=== PATIENT | female | born 1985 | race Caucasian/White ===

== ENCOUNTER 2021-08-02 12:13 | Emergency (ER) | payer OTHER ==
[2021-08-02 12:19] VITALS: BP 104/85
--- NOTE | 2021-08-02 12:32 | ED Physician Documentation ---
History of Present Illness - Stated complaint Stated Complaint: EXPOSED TO TOXOPLASMOSIS - Chief complaint Chief Complaint: General - History obtained from History obtained from: Patient - Additonal information Additional information: 36-year-old woman who is at approximately 15 weeks works at a vet clinic and took the rectal temperature of a cat who potentially had toxoplasmosis today. She obviously feels fine and washed her hands several times after the incident. She presents wondering if she needs prophylactic treatment for toxoplasmosis. Review of Systems Constitutional: denies: Fever, Chills Cardiac: reports: Reviewed and negative Respiratory: reports: Reviewed and negative PD PAST MEDICAL HISTORY - Allergies Allergies/Adverse Reactions: Allergies Allergy/AdvReac Type Severity Reaction Status Date / Time No Known Drug Allergies Allergy Verified 08/02/21 12:19 PD ED PE NORMAL - Vitals Vital signs reviewed: Yes - General General: Alert and oriented X 3, No acute distress - Neuro Neuro: Alert and oriented X 3, Normal speech - Psych Psych: Normal mood, Normal affect Results - Vitals Vitals: Vital Signs - 24 hr 08/02/21 12:15 Temperature 36.1 C L Heart Rate 84 Respiratory 16 Rate Blood Pressure 104/85 H O2 Saturation 100 Oxygen O2 Source Room air PD MEDICAL DECISION MAKING - ED course ED course: 36-year-old woman who is with potential toxoplasmosis exposure today although sounds very low risk based on her description since there was no fecal oral touching and she washed her hands very thoroughly just after the exposure. I did some research online and it also spoke with Dr. Boston our on-call audit officer. It does not sound like there is any role for prophylactic treatment, we will check an IgG today to see if she already has antibodies in w [facility] case no specific follow-up is necessary other than routine OB follow-up, if she is seronegative, she may need screening through OB to see if she seroconverts. Departure - Departure Disposition: 01 Home, Self Care Clinical Impression: Exposure to Toxoplasma species Qualifiers: Weeks of gestation: 15 weeks Qualified Code(s): Z3A.15 - 15 weeks gestation of Condition: Stable Record reviewed to determine appropriate education?: Yes Follow-Up: Hattie Ramos ARNP [Credentialed Staff Provider] - [facility] [Provider Group] Comments: As discussed, it seems very unlikely that you will develop toxoplasmosis based on your exposure, we are sending off a toxoplasmosis IgG today. Since many people have already developed immunity to toxoplasmosis, if your IgG is positive, no further follow-up or work-up is necessary since it is only the initial infection with toxoplasmosis that can affect the . If your toxoplasmosis IgG is negative, you will need to follow-up with OB for what ever screening they feel is appropriate to see if you seroconvert or develop signs of toxoplasmosis in . I have included the name on your form of Xochilt Negro, she is on-call this coming week for primary care follow-ups and you should call her office on Wednesday. Also the number for the OB clinic. You have a toxoplasmosis IgG pending. The easiest way to see the result result is to go to the hospital website at [email or web address], click on the my [email or web address] tab and sign up for the patient portal. Discharge Date/Time: 08/02/21 13:00
== END 2021-08-02 13:00 | disposition home or self-care (01) ==
LOC: ED 12:13
DX: O99.891 Other specified diseases and conditions complicating pregnancy (principal); Z20.818 Contact with and (suspected) exposure to other bacterial communicable diseases; Z3A.15 15 weeks gestation of pregnancy
CPT/HCPCS: 81599; 99281; 99283